=== PATIENT | female | born 1955 | race Caucasian/White ===

== ENCOUNTER → 2017-05-25 | Day surgery (SDC) | payer BC ==
[~2017-05-25] MED LIST: ALENDRONATE SOD70 MG PO; CALTRATE 600 W1 EACH; D3 PO; DONNATAL E16.2 MG/5; ELESTRIN TOP; FENTANYL CITRATE/PF 100MCG/2 ML INJ ONE; FISH OIL 500 M1 EAC1 PO; LEVOCETIRIZINE D5 MG PO; LEVOTHYROXINE125 MCG PO; LIOTHYRONINE SO5 MCG PO; MIDAZOLAM HCL 2 MG/2 ML VIAL ONE; MONTELUKAST SOD10 MG PO; OR PHACO EYE KIT ONE; PREOP PHACO EYE KIT ONE; ROPINIROLE HCL1 MG PO; VITAMIN E1000 UNI1 PO; ZOLPIDEM TARTRAT5 MG PO; [UNRECOGNIZED DRUG - OTHER] PO
== END | disposition home or self-care (01) ==
LOC: OR 11:48
PROVIDERS: ATTEND Ophthalmology
DX: H25.12 Age-related nuclear cataract, left eye (principal); M81.0 Age-related osteoporosis without current pathological fracture; E03.9 Hypothyroidism, unspecified
CPT/HCPCS: 66984; J2250; V2788

== ENCOUNTER 2018-03-10 11:32 | Emergency (ER) | payer BC ==
[~2018-03-10] VITALS: Ht 160 cm; Wt 59.0 kg
[~2018-03-10 11:32] MED LIST changes: -FENTANYL CITRATE/PF 100MCG/2 ML INJ ONE; -MIDAZOLAM HCL 2 MG/2 ML VIAL ONE; -OR PHACO EYE KIT ONE; -PREOP PHACO EYE KIT ONE
[2018-03-10] MEDS ORDERED: TRAMADOL HCL 50 MG TAB PO ONE (12:00)
--- NOTE | 2018-03-10 12:27 | Diagnostic Imaging Report ---
Exam: Left wrist 3 views History: Pain, concern for fracture Comparison: None. Findings: No acute, displaced fracture or dislocation. Appropriate alignment between the distal radius, lunate, and capitate is maintained on the lateral radiograph. There is ulnar positive variance with narrowing of the radiocarpal joint space. No gross soft tissue abnormalities. Impression: No acute displaced fractures. Ulnar positive variance with radiocarpal osteoarthrosis. Signed by: Dr. Rod Gaona M.D. on 03/10/2018 12:23 PM
--- NOTE | 2018-03-10 12:29 | Diagnostic Imaging Report ---
Exam: Left hand 3 views History: Pain, concern for fracture Comparison: Wrist radiographs same day Findings: No acute, displaced fracture or dislocation. Ulnar positive variance is again noted. Refer to wrist radiographs same day. Joint spaces are well-maintained. Soft tissues are unremarkable. Impression: No acute osseous abnormalities of the left hand. Signed by: Dr. Rod Gaona M.D. on 03/10/2018 12:25 PM
== END 2018-03-10 13:39 | disposition home or self-care (01) ==
LOC: ER 11:32
DX: S63.522A Sprain of radiocarpal joint of left wrist, initial encounter (principal); W01.0XXA Fall on same level from slipping, tripping and stumbling without subsequent striking against object, initial encounter; Y92.008 Other place in unspecified non-institutional (private) residence as the place of occurrence of the external cause; E03.9 Hypothyroidism, unspecified; M81.0 Age-related osteoporosis without current pathological fracture
CPT/HCPCS: 99283

== ENCOUNTER → 2019-01-28 | Day surgery (SDC) | payer BC, MEDICARE ==
[2019-01-25 12:14] LABS: BASOPHILS % 0.3 % (0.0-1.0); EOSINOPHILS # (AUTO) 0.1 (0.0-0.4); EOSINOPHILS % 2.1 % (0.0-6.0); HEMATOCRIT 40.4 % (34.2-44.1); HEMOGLOBIN 13.2 g/dL (12.0-16.0); LYMPHOCYTES # (AUTO) 2.1 (1.0-3.2); LYMPHOCYTES % 36.4 % (18.0-39.1); MEAN CORPUSCULAR HEMOGLOBIN 32.4 pg (28-32); MEAN CORPUSCULAR HGB CONC 32.7 g/dL (31-35); MONOCYTES # (AUTO) 0.7 (0.2-0.8); MONOCYTES % 11.6 % (4.4-11.3); NEUTROPHILS # (AUTO) 2.9 (2.1-6.9); NEUTROPHILS % 49.3 % (38.7-80.0); PLATELET COUNT 280 x10e3/uL (140-360); RED BLOOD COUNT 4.08 x10e6/uL (3.6-5.1); RED CELL DISTRIBUTION WIDTH 13.3 % (11.7-14.4)
[~2019-01-28] MED LIST changes: +DONNATAL E16.2 MG/5 PO; +FENTANYL CITRATE/PF 100MCG/2 ML INJ ONE; +HYOSCYAMINE 0.125 MG TAB ONE; +MIDAZOLAM HCL 2 MG/2 ML VIAL ONE; +PROPOFOL IV EMULSION 10 MG/ML 50 ML VIAL ONE
--- OUTSIDE RECORDS SUMMARY | 2019-01-28 08:06 | XMS REPORT ---
Author Author [facility] Address Unknown Phone Unavailable Care Team Providers Care Director Professional Services Name Role Phone Jojo CASTRO Unavailable Unavailable Problems This patient has no known problems. Allergies, Adverse Reactions, Alerts This patient has no known allergies or adverse reactions. Medications This patient has no known medications. Results Test Description Test Time Test Comments Text Results Atomic Results Result Comments SCR MAMM BILATERAL JOEY CAD DIGITAL 2018-12-26 08:47:47 - SCR MAMM BILATERAL JOEY CAD DIGITALBILATERAL DIGITAL SCREENING MAMMOGRAM 3D/2D WITH CAD: 12/23/2018CLINICAL: Asymptomatic. Digital breast tomosynthesis was performed in addition to routine CC and MLO views. Current mammographic images were evaluated by either a [employer] M-Vu or a [employer] CAD (computer aided detection system). Comparison is made to exams dated 12/22/2017 mammogram, 11/02 mammogram - [facility]-, and 02/24/2016 mammogram - [facility]. The tissue of both breasts is heterogeneously dense. This may lower the sensitivity of mammography. There are benign-appearing masses with obscured borders in both breasts, larger in the left breast. There also are benign scattered calcifications in the right breast and benign calcifications in the left breast. Additionally, there alsois a biopsy clip in the right breast. No suspicious new mass, architectural distortion, malignant type calcification, or lymph node abnormality detected. B reast architecture appears generally stable compared to prior exams.IMPRESSION: BENIGNThere is no mammographic evidence of malignancy. Resume annual screening mammography in one year. Bilateral breast masses appear slightly larger on the current exam. Simple and complicated cysts were reported at sonography om 12/22/2017.Steven Adair M.D. rb/:12/26/2018 08:47:47 Lance Crewmember/Mlrs Sergeant: Rayne Yanez , [facility]-FWletter sent: BIRADS 1-2 Normal Mammogram BI-RADS: 2 Benign HAND 3+ VIEWS LEFT 2018-03-10 12:24:00 [place] [id number] [place] [id number] Patient Name: NATHALY MIMS MR #: [id number] : 1955 Age/Sex: 63/F Req #: [id number] Adm Physician: Ordered by: JAEL BRICEÑO BUFFING WHEEL PRESSER Report #: [id number] Location: ER Room/Bed: Procedure: [id number] DX/HAND 3+ VIEWS LEFT Exam Date: 03/10/18 Exam Time: 1205 REPORT STATUS: Signed Exam: Left hand 3 views History: Pain, concern for fracture Comparison: Wrist radiographs same day Findings: No acute, displaced fracture or dislocation. Ulnar positive variance is again noted. Refer to wrist radiographs same day. Joint spaces are well-maintained. Soft tissues are unremarkable. Impression: No acute osseous abnormalities of the left hand. Signed by: Dr. Mane Mcelroy M.D. on 03/10/2018 12:25 PM Dictated By: MANE MCELROY MD 1225 Transcribed By: KRISTI on 03/10/18 1225 COPY TO: JAEL BRICEÑO BUFFING WHEEL PRESSER WRIST COMPLETE LEFT 2018-03-10 12:19:00 [place] [address] Patient Name: NATHALY MIMS MR #: [id number] : 1955 Age/Sex: 63/F Req #: [id number] Adm Physician: Ordered by: JAEL BRICEÑO BUFFING WHEEL PRESSER Report #: [id number] Location: Room/Bed: Procedure: [id number] DX/WRIST COMPLETE LEFT Exam Date: 03/10/18 Exam Time: 120 REPORT STATUS: Signed Exam: Left wrist 3 views History: Pain, conc alisson for fracture Comparison: None. Findings: No acute, displaced fracture or dislocation. Appropriate alignment between the distal radius, lunate, and capitate is maintained on the lateral radiograph. There is ulnar positive variance with narrowing of the radiocarpal joint space. No gross soft tissue abnormalities. Impression: No acute displaced fractures. Ulnar positive variance with radiocarpal osteoarthrosis. Signed by: Dr. Mane Mcelroy M.D. on 03/10/2018 12:23 PM Dictated By: MANE MCELROY MD 1223 Transcribed By: KRISTI on 03/10/18 1223 COPY TO: JAEL BRICEÑO NP
[2019-01-28 12:20] VITALS: BP 121/76
--- NOTE | 2019-01-28 12:44 | Operative Report ---
DATE OF PROCEDURE: 01/28/2019 SURGEON: Janes Dominguez MD PROCEDURE: Colonoscopy with polypectomy. INDICATIONS FOR COLONOSCOPY: Surveillance colonoscopy, history of Oseguera syndrome. MEDICATIONS: The patient was done under MAC, please see anesthesiologist's note. PROCEDURE IN DETAIL: With the patient in left lateral decubitus position, a flexible fiberoptic Olympus colonoscope was inserted into the rectum with ease and advanced all the way to the cecum. One polyp was removed per cold snare polypectomy. An additional cecal polyp was removed per the cold biopsy forceps. The ascending, transverse and descending appeared to be within normal limits. Diverticular disease was noted to involve the sigmoid colon. The scope was then retroflexed into the distal rectum and the area around the dentate line appeared to be within normal limits. The scope was then straightened out, it was subsequently withdrawn. The patient tolerated the procedure well. IMPRESSION: 1. Cecal polyps x2, one cold snared and one cold biopsied. 2. Diverticulosis. PLAN: Follow up histology. Initiate high-fiber, low-fat diet. Initiate high-fiber supplement. The patient might benefit from a followup colonoscopy in 1 to 2 years. Janes Dominguez MD [facility] [place] /[id number] cc: Mike Ospina MD
== END | disposition home or self-care (01) ==
LOC: OR 07:55
PROVIDERS: ATTEND Internal Medicine Gastroenterology
DX: K57.30 Diverticulosis of large intestine without perforation or abscess without bleeding (principal); G25.81 Restless legs syndrome; G47.00 Insomnia, unspecified; E03.9 Hypothyroidism, unspecified; M81.0 Age-related osteoporosis without current pathological fracture; Z80.0 Family history of malignant neoplasm of digestive organs; Z86.010 Personal history of colon polyps; R03.0 Elevated blood-pressure reading, without diagnosis of hypertension; D12.0 Benign neoplasm of cecum; Z91.010 Allergy to peanuts; Z01.810 Encounter for preprocedural cardiovascular examination; Z01.812 Encounter for preprocedural laboratory examination
CPT/HCPCS: 36415; 45380; 45385; 85025; 93005; J2250; J2704; J3010; 45378; 45384

== ENCOUNTER → 2019-02-21 | Day surgery (SDC) | payer MEDICARE, BC ==
[~2019-02-21] MED LIST changes: -HYOSCYAMINE 0.125 MG TAB ONE; +OR PHACO EYE KIT ONE; +PREOP PHACO EYE KIT ONE; -PROPOFOL IV EMULSION 10 MG/ML 50 ML VIAL ONE
[2019-02-21 13:46] VITALS: BP 148/46
== END | disposition home or self-care (01) ==
LOC: OR 10:10
PROVIDERS: ATTEND Ophthalmology
DX: H25.11 Age-related nuclear cataract, right eye (principal); E03.9 Hypothyroidism, unspecified; Z91.010 Allergy to peanuts
CPT/HCPCS: 66984; J2250; J3010; V2632

== ENCOUNTER → 2020-03-05 | Day surgery (SDC) | payer BC, MEDICARE ==
[2020-03-01 12:10] LABS: BASOPHILS % 0.6 % (0.0-1.0); EOSINOPHILS # (AUTO) 0.2 (0.0-0.4); EOSINOPHILS % 2.5 % (0.0-6.0); HEMATOCRIT 38.8 % (34.2-44.1); HEMOGLOBIN 12.5 g/dL (12.0-16.0); LYMPHOCYTES # (AUTO) 2.4 (1.0-3.2); LYMPHOCYTES % 37.5 % (18.0-39.1); MEAN CORPUSCULAR HEMOGLOBIN 30.7 pg (28-32); MEAN CORPUSCULAR HGB CONC 32.2 g/dL (31-35); MEAN CORPUSCULAR VOLUME 95.3 fL (81-99); MONOCYTES # (AUTO) 1.1 (0.2-0.8); NEUTROPHILS # (AUTO) 2.7 (2.1-6.9); NEUTROPHILS % 42.2 % (38.7-80.0); PLATELET COUNT 280 x10e3/uL (140-360); RED BLOOD COUNT 4.07 x10e6/uL (3.6-5.1); RED CELL DISTRIBUTION WIDTH 13.4 % (11.7-14.4)
[~2020-03-05] MED LIST changes: +GLUCAGON FOR INJ 1 MG VIAL ONE; +HYOSCYAMINE 0.125 MG TAB ONE; +LIDOCAINE HCL 2% LOCAL INJ 5 ML SDV VIAL INJ ONE; -OR PHACO EYE KIT ONE; -PREOP PHACO EYE KIT ONE; +PROPOFOL IV EMULSION 10 MG/ML 20 ML VIAL ONE; +SYMAX-SR0.375 MG PO; +XYZAL5 MG PO
[2020-03-05 12:40] VITALS: BP 114/67
--- NOTE | 2020-03-05 12:56 | Operative Report ---
DATE OF PROCEDURE: 03/05/2020 SURGEON: Janes Dominguez MD PROCEDURE: Colonoscopy with polypectomy. INDICATIONS FOR COLONOSCOPY: Personal history of colon polyps, brother and mother with colon cancer. MEDICATIONS: The patient was done under MAC, please see anesthesiologist's note. PROCEDURE IN DETAIL: With the patient in the left lateral decubitus position, the flexible fiberoptic Olympus scope was inserted into the rectum with ease and advanced all the way to the cecum. The mucosa overlying the cecum appeared to be within normal limits. One polyp was cold snared, one polyp was hot biopsied, and site hemoclipped x1 in the ascending colon. The transverse appeared to be within normal limits. One polyp was hot biopsied from the descending colon. Diverticular disease was noted to involve the distal descending and the sigmoid colon. The scope was then retroflexed into the distal rectum and the area around the dentate line appeared to be within normal limits. The scope was then straightened out, it was subsequently withdrawn, and the patient tolerated the procedure well. IMPRESSION: 1. Ascending colon polyps x2, one cold snared, one hot biopsied and site hemoclipped x1. 2. Descending colon polyp, hot biopsied. 3. Diverticulosis. PLAN: Follow up histology. Initiate high-fiber, low-fat diet. Initiate high-fiber supplement. The patient might benefit from a followup colonoscopy in two years. Janes Dominguez MD [facility] [place] /[id number] cc: Mike Ospina MD
== END | disposition home or self-care (01) ==
LOC: OR 10:27
PROVIDERS: ATTEND Internal Medicine Gastroenterology
DX: Z12.11 Encounter for screening for malignant neoplasm of colon (principal); D12.2 Benign neoplasm of ascending colon; K57.30 Diverticulosis of large intestine without perforation or abscess without bleeding; E03.9 Hypothyroidism, unspecified; Z91.010 Allergy to peanuts; Z01.810 Encounter for preprocedural cardiovascular examination; Z01.812 Encounter for preprocedural laboratory examination; Z20.828 Contact with and (suspected) exposure to other viral communicable diseases; Z80.0 Family history of malignant neoplasm of digestive organs
CPT/HCPCS: 36415 ×2; 45384; 45385; 82948; 85025; 88305; 93005; J1610; J2001; J2250; J2704; J3010; U0002

== ENCOUNTER 2020-03-15 14:10 | Inpatient (IN) | payer MEDICARE ==
[~2020-03-15] VITALS: Ht 162.6 cm; Wt 59.0 kg
[~2020-03-15 14:10] MED LIST changes: -FENTANYL CITRATE/PF 100MCG/2 ML INJ ONE; -GLUCAGON FOR INJ 1 MG VIAL ONE; -HYOSCYAMINE 0.125 MG TAB ONE; -LIDOCAINE HCL 2% LOCAL INJ 5 ML SDV VIAL INJ ONE; -MIDAZOLAM HCL 2 MG/2 ML VIAL ONE; -PROPOFOL IV EMULSION 10 MG/ML 20 ML VIAL ONE
[2020-03-15] MEDS ORDERED: ONDANSETRON HCL INJ 2MG/ML 2ML 2 MG/ML VIAL IV STA ×2 (14:32→16:14)
[2020-03-15] MEDS ORDERED: MORPHINE SULFATE INJ 4 MG/ML INJ 1ML IV ONE (14:45)
[2020-03-15 15:27] LABS: BASOPHILS % 0.3 % (0.0-1.0); EOSINOPHILS # (AUTO) 0.1 (0.0-0.4); EOSINOPHILS % 0.6 % (0.0-6.0); HEMATOCRIT 36.4 % (34.2-44.1); HEMOGLOBIN 12.1 g/dL (12.0-16.0); LYMPHOCYTES # (AUTO) 1.5 (1.0-3.2); LYMPHOCYTES % 16.9 % (18.0-39.1); MEAN CORPUSCULAR HEMOGLOBIN 30.6 pg (28-32); MEAN CORPUSCULAR HGB CONC 33.2 g/dL (31-35); MEAN CORPUSCULAR VOLUME 92.2 fL (81-99); MONOCYTES # (AUTO) 0.8 (0.2-0.8); MONOCYTES % 8.5 % (4.4-11.3); NEUTROPHILS # (AUTO) 6.7 (2.1-6.9); NEUTROPHILS % 73.1 % (38.7-80.0); PLATELET COUNT 303 x10e3/uL (140-360); RED BLOOD COUNT 3.95 x10e6/uL (3.6-5.1)
[2020-03-15 15:47] LABS: ALANINE AMINOTRANSFERASE 19 IU/L (0-55); ALBUMIN 3.8 g/dL (3.5-5.0); ALBUMIN/GLOBULIN RATIO 1.2 (0.8-2.0); ALKALINE PHOSPHATASE 84 IU/L (40-150); ANION GAP 12.9 mmol/L (8-16); BLOOD UREA NITROGEN 20 mg/dL (7-26); BUN/CREATININE RATIO 28 (6-25); CALCIUM 9.2 mg/dL (8.4-10.2); CARBON DIOXIDE 23 mmol/L (22-29); CHLORIDE 104 mmol/L (98-107); CREATININE, SERUM 0.72 mg/dL (0.57-1.11); EST GLOMERULAR FILTRATION RATE > 60 ML/MIN (60-); GLUCOSE 107 mg/dL (74-118); POTASSIUM 3.9 mmol/L (3.5-5.1); SODIUM 136 mmol/L (136-145)
[2020-03-15] MEDS ORDERED: MORPHINE SULFATE 2 MG/ML SYR 1ML IV STA (16:14)
[2020-03-15 18:03] VITALS: BP 112/70
[2020-03-15 18:30] VITALS: BP 112/70
[2020-03-15 18:39] VITALS: BP 112/70
[2020-03-15 20:05] VITALS: BP 125/58
[2020-03-16] VITALS (7 sets, daily range): BP systolic 125–146; BP diastolic 74–82
[2020-03-16] MEDS: ONDANSETRON HCL INJ 2MG/ML 2ML 2 MG/ML VIAL IV PRN ×4 (01:22→21:00)
[2020-03-16] MEDS: MORPHINE SULFATE INJ 4 MG/ML INJ 1ML IV PRN ×5 (01:22→21:00)
[2020-03-16] MEDS: LEVOTHYROXINE SODIUM 125 MCG TAB PO SCH (05:00)
[2020-03-16] MEDS: LIOTHYRONINE SODIUM 5 MCG TAB PO SCH (10:22)
[2020-03-16] MEDS ORDERED: SODIUM CHLORIDE 0.45% 1,000 ML ONE (11:26)
[2020-03-16] MEDS: MONTELUKAST SODIUM 10 MG TAB PO SCH (21:00)
[2020-03-16] MEDS: ZOLPIDEM TARTRATE 5 MG TAB PO SCH (21:00)
[2020-03-17] VITALS (8 sets, daily range): BP systolic 124–146; BP diastolic 72–81
[2020-03-17] MEDS: MORPHINE SULFATE INJ 4 MG/ML INJ 1ML IV PRN ×4 (05:00→18:15)
[2020-03-17] MEDS: ONDANSETRON HCL INJ 2MG/ML 2ML 2 MG/ML VIAL IV PRN ×4 (05:00→18:15)
[2020-03-17] MEDS: LEVOTHYROXINE SODIUM 125 MCG TAB PO SCH (05:14)
[2020-03-17] MEDS: LIOTHYRONINE SODIUM 5 MCG TAB PO SCH (08:00)
[2020-03-17] MEDS: ZOLPIDEM TARTRATE 5 MG TAB PO SCH (21:46)
[2020-03-17] MEDS: MONTELUKAST SODIUM 10 MG TAB PO SCH (21:47)
[2020-03-18] VITALS (7 sets, daily range): BP systolic 126–153; BP diastolic 63–77
[2020-03-18] MEDS: ONDANSETRON HCL INJ 2MG/ML 2ML 2 MG/ML VIAL IV PRN ×2 (02:30→10:02)
[2020-03-18] MEDS: MORPHINE SULFATE INJ 4 MG/ML INJ 1ML IV PRN ×2 (02:30→10:02)
[2020-03-18] MEDS: LEVOTHYROXINE SODIUM 125 MCG TAB PO SCH (05:23)
[2020-03-18] MEDS ORDERED: CEFAZOLIN SOD 2 GM/D5W 50ML 50 ML IV ONE (07:00)
[2020-03-18] MEDS ORDERED: ROPIVACAINE 246.25 MG, EPINEPHRINE HCL 1:1000 1ML 0.5 MG, CLONIDINE HCL 0.08 MG, KETORO... INJ ONE ×5 (08:00)
[2020-03-18] MEDS: LIOTHYRONINE SODIUM 5 MCG TAB PO SCH (09:00)
[2020-03-18] MEDS ORDERED: SODIUM CHLORIDE 0.9% 250ML 250 ML ONE (09:22)
[2020-03-18] MEDS ORDERED: CEFAZOLIN SOD 1 GM VIAL IV ONE (09:30)
[2020-03-18] MEDS ORDERED: CELECOXIB 200 MG CAP ONE (10:16)
[2020-03-18] MEDS ORDERED: DEXAMETHASONE SOD PHOS 10 MG/1 ML VIAL ONE (10:16)
[2020-03-18] MEDS ORDERED: GABAPENTIN 300 MG CAP ONE (10:17)
[2020-03-18] MEDS ORDERED: BUPIVACAINE 7.5MG/ML /DEXTROSE 82.5MG/ML 2 ML AMP INJ ONE (11:17)
[2020-03-18] MEDS ORDERED: TRANEXAMIC ACID 1,000 MG/10 ML ML ONE (11:28)
[2020-03-18] MEDS ORDERED: SODIUM CHLORIDE 0.9% 500ML 500 ML ONE (11:56)
[2020-03-18] MEDS ORDERED: VANCOMYCIN HCL 1,000 MG ONE (11:56)
[2020-03-18] MEDS ORDERED: LIDOCAINE HCL 2% LOCAL INJ 5 ML SDV VIAL INJ ONE (12:44)
[2020-03-18] MEDS ORDERED: PROPOFOL IV EMULSION 10 MG/ML 20 ML VIAL ONE (12:44)
[2020-03-18] MEDS ORDERED: ONDANSETRON HCL INJ 2MG/ML 2ML 2 MG/ML VIAL ONE (12:44)
[2020-03-18] MEDS ORDERED: CEFAZOLIN SOD 1 GM VIAL ONE (12:44)
[2020-03-18] MEDS ORDERED: KETOROLAC TROMETHAMINE 30 MG/ML VIAL ONE (12:44)
[2020-03-18] MEDS ORDERED: SEVOFLURANE INHAL SOLN 250 ML PEN BTL ONE (12:44)
[2020-03-18] MEDS ORDERED: HYDROCODONE/APAP 7.5MG-325MG 1 EA TAB PO PRN (13:15)
[2020-03-18] MEDS ORDERED: KETOROLAC TROMETHAMINE 30 MG/ML VIAL IV PRN (13:15)
[2020-03-18] MEDS ORDERED: ONDANSETRON HCL INJ 2MG/ML 2ML 2 MG/ML VIAL IV PRN (13:15)
[2020-03-18] MEDS ORDERED: ACETAMINOPHEN 650 MG SUPP PR PRN (13:15)
[2020-03-18] MEDS ORDERED: DIPHENHYDRAMINE HCL INJ 50 MG/ML VIAL IV PRN (13:15)
[2020-03-18] MEDS: SODIUM CHLORIDE 0.9% 1000ML 1,000 ML IV SCH ×2 (13:15→21:12)
[2020-03-18] MEDS ORDERED: DOCUSATE SODIUM 100 MG CAP PO PRN (13:15)
[2020-03-18] MEDS ORDERED: ZOLPIDEM TARTRATE 5 MG TAB PO PRN (13:15)
[2020-03-18] MEDS ORDERED: MUPIROCIN 2% OINT 22 GM TUBE ONE (13:18)
[2020-03-18] MEDS: CEFAZOLIN SOD 1 GM/NS 50ML 50 ML IV SCH ×2 (14:00→22:26)
[2020-03-18] MEDS ORDERED: CELECOXIB 100 MG CAP PO SCH (17:00)
[2020-03-18] MEDS: ZOLPIDEM TARTRATE 5 MG TAB PO SCH (21:00)
[2020-03-18] MEDS: ASPIRIN 325 MG TAB PO SCH (21:15)
[2020-03-18] MEDS: MONTELUKAST SODIUM 10 MG TAB PO SCH (21:15)
[2020-03-18] MEDS: CELECOXIB 200 MG CAP PO SCH (21:15)
[2020-03-18] MEDS: HYDROCODONE/APAP 5MG-325MG TAB PO PRN (22:47)
[2020-03-19] VITALS (8 sets, daily range): BP systolic 108–138; BP diastolic 55–89
[2020-03-19] MEDS: LEVOTHYROXINE SODIUM 125 MCG TAB PO SCH (06:11)
[2020-03-19] MEDS: CEFAZOLIN SOD 1 GM/NS 50ML 50 ML IV SCH (06:11)
[2020-03-19 06:20] LABS: HEMATOCRIT 34.1 % (34.2-44.1); HEMOGLOBIN 11.2 g/dL (12.0-16.0)
[2020-03-19] MEDS: CELECOXIB 200 MG CAP PO SCH ×2 (09:29→18:06)
[2020-03-19] MEDS: ASPIRIN 325 MG TAB PO SCH ×2 (09:30→18:06)
[2020-03-19] MEDS: LIOTHYRONINE SODIUM 5 MCG TAB PO SCH (09:30)
[2020-03-19] MEDS: HYDROCODONE/APAP 5MG-325MG TAB PO PRN (09:31)
[2020-03-19] MEDS ORDERED: ACETAMINOPHEN 1000 MG/100 ML IV PRN (13:15)
[2020-03-20] MEDS ORDERED: BALSAM PERU/CASTOR OIL 60 GM OINT...G. TP SCH (09:00)
== END 2020-03-19 21:09 | disposition home or self-care (01) | DRG 522 ==
LOC: ER 14:30 → ERHOLD 16:25 → MED/SURG3 17:41 → MED/SURG 03-18 19:20
PROVIDERS: ADMIT Internal Medicine; ATTEND Internal Medicine
PROC: 0SR904A Replacement of Right Hip Joint with Ceramic on Polyethylene Synthetic Substitute, Uncemented, Open Approach (ICD-10-PCS; principal; 2020-03-18 11:30)
DX: M84.459A Pathological fracture, hip, unspecified, initial encounter for fracture (principal); Y93.9 Activity, unspecified; Y92.009 Unspecified place in unspecified non-institutional (private) residence as the place of occurrence of the external cause; M81.0 Age-related osteoporosis without current pathological fracture; W01.0XXA Fall on same level from slipping, tripping and stumbling without subsequent striking against object, initial encounter; M16.12 Unilateral primary osteoarthritis, left hip; I10 Essential (primary) hypertension; E03.9 Hypothyroidism, unspecified; D64.9 Anemia, unspecified
CPT/HCPCS: 36415; 71045; 72170; 80053; 85014; 85018; 85025; 86850; 86900; 93005; 97139; 99251; 99284; J0171; J0690; J1100; J1885; J2001; J2270; J2405; J2795; J3370; J7030; J7040; J7050; U0002

== ENCOUNTER 2021-10-21 19:52 | Inpatient (IN) | payer MEDICARE, OTHER ==
[~2021-10-21] VITALS: Ht 160 cm; Wt 59.0 kg
[2021-10-21 01:25] VITALS: BP 135/74
[~2021-10-21 19:52] MED LIST changes: +AMBIEN5 MG PO; +CYMBALTA30 MG PO; +PHENTERMINE H37.5 MG PO
[2021-10-21] MEDS ORDERED: KETOROLAC TROMETHAMINE 30 MG/ML VIAL IV STA (21:24)
[2021-10-21] MEDS ORDERED: ONDANSETRON HCL INJ 2MG/ML 2ML 2 MG/ML VIAL IV STA (21:24)
[2021-10-21] MEDS ORDERED: SODIUM CHLORIDE 0.9% 1000ML 1,000 ML IV ONE (21:30)
[2021-10-21 21:51] LABS: BASOPHILS % 0.4 % (0.0-1.0); EOSINOPHILS % 0.4 % (0.0-6.0); HEMATOCRIT 42.7 % (34.2-44.1); HEMOGLOBIN 14.4 g/dL (12.0-16.0); LYMPHOCYTES # (AUTO) 1.8 (1.0-3.2); LYMPHOCYTES % 18.8 % (18.0-39.1); MEAN CORPUSCULAR HEMOGLOBIN 29.8 pg (28-32); MEAN CORPUSCULAR HGB CONC 33.7 g/dL (31-35); MEAN CORPUSCULAR VOLUME 88.2 fL (81-99); MONOCYTES # (AUTO) 0.8 (0.2-0.8); MONOCYTES % 8.9 % (4.4-11.3); NEUTROPHILS # (AUTO) 6.7 (2.1-6.9); NEUTROPHILS % 71.2 % (38.7-80.0); PLATELET COUNT 301 x10e3/uL (140-360); RED BLOOD COUNT 4.84 x10e6/uL (3.6-5.1); RED CELL DISTRIBUTION WIDTH 13.2 % (11.7-14.4)
[2021-10-21 21:54] LABS: ALBUMIN 3.9 g/dL (3.5-5.0); ALBUMIN/GLOBULIN RATIO 1.1 (0.8-2.0); ANION GAP 16.4 mmol/L (8-16); CALCIUM 9.4 mg/dL (8.4-10.2); CREATININE, SERUM 0.79 mg/dL (0.57-1.11); POTASSIUM 3.4 mmol/L (3.5-5.1)
[2021-10-21] MEDS ORDERED: IOPAMIDOL 370 MG/ML 100 ML INFUS..BTL INJ ONE (22:30)
[2021-10-22] VITALS (9 sets, daily range): BP systolic 118–156; BP diastolic 61–85
[2021-10-22] MEDS ORDERED: ONDANSETRON HCL INJ 2MG/ML 2ML 2 MG/ML VIAL IV PRN (00:15)
[2021-10-22] MEDS ORDERED: Morphine 4mg INJECTION 4 MG/ML INJ IV PRN (00:15)
[2021-10-22] MEDS: SODIUM CHLORIDE 0.9% 1000ML 1,000 ML IV SCH ×4 (01:45→22:41)
[2021-10-22] MEDS ORDERED: ACETAMINOPHEN-1 EAC4 PO (07:34)
[2021-10-22] MEDS ORDERED: LIDOCAINE HCL 2% LOCAL INJ 5 ML SDV VIAL INJ ONE (11:54)
[2021-10-22] MEDS ORDERED: ONDANSETRON HCL INJ 2MG/ML 2ML 2 MG/ML VIAL ONE (11:54)
[2021-10-22] MEDS ORDERED: DEXAMETHASONE SOD PHOS INJ 4 MG/ML SDV ONE (11:54)
[2021-10-22] MEDS ORDERED: SEVOFLURANE INHAL SOLN 250 ML PEN BTL ONE (11:54)
[2021-10-22] MEDS ORDERED: PROPOFOL IV EMULSION 10 MG/ML 20 ML VIAL ONE (11:54)
[2021-10-22] MEDS ORDERED: POVIDONE IODINE 0.05% 0.05 % ML PO ONE (11:54)
[2021-10-22] MEDS ORDERED: MIDAZOLAM HCL 2 MG/2 ML VIAL ONE (12:36)
[2021-10-22] MEDS ORDERED: FENTANYL CITRATE/PF 100MCG/2 ML INJ ONE (12:36)
[2021-10-22] MEDS ORDERED: ACETAMINOPHEN/CODEINE 300MG - 30MG TAB PO PRN (14:00)
[2021-10-22] MEDS ORDERED: PHENAZOPYRIDINE HCL 100 MG TAB PO PRN (14:00)
[2021-10-22] MEDS ORDERED: B&O 60MG R/S 60 MG SUPP PR PRN (14:00)
[2021-10-22] MEDS ORDERED: IOPAMIDOL 610MG/1ML 300 MG/ML VIAL IV ONE (14:07)
[2021-10-22] MEDS ORDERED: B&O 60MG R/S 60 MG SUPP PR ONE (14:08)
[2021-10-22 15:07] LABS: CLARITY,URINE SL CLOUDY (CLEAR); COLOR,URINE YELLOW (YELLOW)
[2021-10-22 15:08] LABS: KETONES,URINE 1+ (NEGATIVE); LEUKOCYTE ESTERASE ,URINE TRACE (NEGATIVE); NITRITE,URINE NEGATIVE (NEGATIVE); PROTEIN,URINE DIPSTICK 1+ (NEGATIVE); URINE UROBILINOGEN 0.2 mg/dL (0.2 - 1)
[2021-10-22 15:32] LABS: BACTERIA,URINE MANY /HPF; RBC,URINE 21-50 /HPF (0-5); WBC,URINE (MAN) >50 /HPF (0-5)
[2021-10-22 15:33] LABS: EPITHELIAL CELLS,URINE MODERATE /LPF
[2021-10-22 15:34] LABS: MUCUS,URINE FEW (RARE); TRANSITIONAL EPI CELLS,URINE FEW
[2021-10-23] VITALS: BP 129/87
[2021-10-23 04:00] VITALS: BP 142/79
[2021-10-23 06:42] LABS: BASOPHILS % 0.4 % (0.0-1.0); EOSINOPHILS % 0.3 % (0.0-6.0); HEMATOCRIT 40.2 % (34.2-44.1); LYMPHOCYTES # (AUTO) 1.1 (1.0-3.2); LYMPHOCYTES % 15.1 % (18.0-39.1); MEAN CORPUSCULAR HEMOGLOBIN 29.7 pg (28-32); MEAN CORPUSCULAR HGB CONC 32.3 g/dL (31-35); MONOCYTES # (AUTO) 0.6 (0.2-0.8); NEUTROPHILS # (AUTO) 5.3 (2.1-6.9); NEUTROPHILS % 74.8 % (38.7-80.0); PLATELET COUNT 269 x10e3/uL (140-360); RED BLOOD COUNT 4.37 x10e6/uL (3.6-5.1); RED CELL DISTRIBUTION WIDTH 13.5 % (11.7-14.4)
[2021-10-23 07:05] LABS: ALBUMIN 2.9 g/dL (3.5-5.0); ALBUMIN/GLOBULIN RATIO 0.8 (0.8-2.0); ANION GAP 11.6 mmol/L (8-16); CALCIUM 7.8 mg/dL (8.4-10.2); CREATININE, SERUM 0.74 mg/dL (0.57-1.11); POTASSIUM 3.6 mmol/L (3.5-5.1)
[2021-10-23 08:00] VITALS: BP 142/79
[2021-10-23] MEDS: SODIUM CHLORIDE 0.9% 1000ML 1,000 ML IV SCH (08:15)
[2021-10-23 08:29] VITALS: BP 160/82
[2021-10-23 12:23] VITALS: BP 150/51
[2021-10-23] MEDS ORDERED: KETOROLAC TROME10 MG PO ×2 (13:35→13:36)
[2021-10-23] MEDS ORDERED: DITROPAN XL5 MG PO (13:39)
== END 2021-10-23 15:19 | disposition home or self-care (01) | DRG 661 ==
LOC: ER 20:05 → ERHOLD 10-22 00:14 → MED/SURG2 10-22 01:25
PROVIDERS: ADMIT Internal Medicine; ATTEND Internal Medicine
PROC: 0T768DZ Dilation of Right Ureter with Intraluminal Device, Via Natural or Artificial Opening Endoscopic (ICD-10-PCS; 2021-10-22)
PROC: BT141ZZ Fluoroscopy of Kidneys, Ureters and Bladder using Low Osmolar Contrast (ICD-10-PCS; 2021-10-22)
PROC: 0T778ZZ Dilation of Left Ureter, Via Natural or Artificial Opening Endoscopic (ICD-10-PCS; principal; 2021-10-22 13:41)
DX: N13.6 Pyonephrosis (principal); I10 Essential (primary) hypertension; Z20.822 Contact with and (suspected) exposure to COVID-19; N81.10 Cystocele, unspecified; N23 Unspecified renal colic; N95.2 Postmenopausal atrophic vaginitis; N81.6 Rectocele; Z90.710 Acquired absence of both cervix and uterus; Z90.79 Acquired absence of other genital organ(s); Z96.643 Presence of artificial hip joint, bilateral; M16.0 Bilateral primary osteoarthritis of hip; M81.0 Age-related osteoporosis without current pathological fracture; E03.9 Hypothyroidism, unspecified; N39.41 Urge incontinence; E87.6 Hypokalemia
CPT/HCPCS: 36415; 74018; 74177; 74420; 80053; 81001; 83605; 83970; 84550; 85025; 87086; 93005; 99284; C1758; C1769; C2617; J0696; J1100; J1885; J2001; J2250; J2405; J3010; J7030; Q9967

== ENCOUNTER → 2022-01-22 | Day surgery (SDC) | payer MEDICARE, OTHER ==
[2022-01-20 15:31] LABS: BASOPHILS % 0.5 % (0.0-1.0); EOSINOPHILS # (AUTO) 0.2 (0.0-0.4); EOSINOPHILS % 3.5 % (0.0-6.0); HEMATOCRIT 38.4 % (34.2-44.1); HEMOGLOBIN 12.5 g/dL (12.0-16.0); LYMPHOCYTES # (AUTO) 1.7 (1.0-3.2); LYMPHOCYTES % 26.1 % (18.0-39.1); MEAN CORPUSCULAR HEMOGLOBIN 29.7 pg (28-32); MEAN CORPUSCULAR HGB CONC 32.6 g/dL (31-35); MEAN CORPUSCULAR VOLUME 91.2 fL (81-99); MONOCYTES # (AUTO) 0.6 (0.2-0.8); MONOCYTES % 8.6 % (4.4-11.3); NEUTROPHILS # (AUTO) 4.1 (2.1-6.9); PLATELET COUNT 259 x10e3/uL (140-360); RED BLOOD COUNT 4.21 x10e6/uL (3.6-5.1)
[2022-01-20 15:55] LABS: ANION GAP 15.6 mmol/L (8-16); CALCIUM 9.1 mg/dL (8.4-10.2); CREATININE, SERUM 0.75 mg/dL (0.57-1.11); POTASSIUM 3.6 mmol/L (3.5-5.1)
[~2022-01-22] MED LIST changes: +ACETAMINOPHEN-1 EAC4 PO; +CEFTRIAXONE 1 GM VIAL ONE; +DEXAMETHASONE SOD PHOS INJ 4 MG/ML SDV IV ONE; +DITROPAN XL5 MG PO; +FENTANYL CITRATE/PF 100MCG/2 ML INJ ONE; +KETOROLAC TROME10 MG PO; +LIDOCAINE HCL 2% LOCAL INJ 5 ML SDV VIAL INJ ONE; +MIDAZOLAM HCL 2 MG/2 ML VIAL ONE; +ONDANSETRON HCL INJ 2MG/ML 2ML 2 MG/ML VIAL IV ONE; +PHENTERMINE H37.5 M1 PO; +PHENYLEPHRINE HCL 1% 10 MG/ML VIAL IV ONE; +POVIDONE IODINE 0.05% 0.05 % ML PO ONE; +PROPOFOL IV EMULSION 10 MG/ML 20 ML VIAL IV ONE; +SEVOFLURANE INHAL SOLN 250 ML PEN BTL INH ONE; +SODIUM CHLORIDE 0.9% 100 ML ONE; +SYMAX-SR0.375 MG; +SYNTHROID125 MCG PO
[2022-01-22 09:05] VITALS: BP 134/76
== END | disposition home or self-care (01) ==
LOC: OR 06:38
PROVIDERS: ATTEND Urology
DX: N20.1 Calculus of ureter (principal); Z96.0 Presence of urogenital implants; N20.0 Calculus of kidney; E03.9 Hypothyroidism, unspecified; K21.9 Gastro-esophageal reflux disease without esophagitis; Z01.812 Encounter for preprocedural laboratory examination; Z01.818 Encounter for other preprocedural examination; Z79.899 Other long term (current) drug therapy
CPT/HCPCS: 36415; 50590; 71046; 74018; 80048; 84550; 85025; J0696; J1100; J2001; J2250; J2370; J2405; J2704; J3010; J7050

== ENCOUNTER → 2022-07-23 | Day surgery (SDC) | payer MEDICARE, OTHER ==
[2022-07-21 15:55] LABS: BASOPHILS % 0.4 % (0.0-1.0); EOSINOPHILS # (AUTO) 0.1 (0.0-0.4); EOSINOPHILS % 1.5 % (0.0-6.0); HEMATOCRIT 40.3 % (34.2-44.1); HEMOGLOBIN 13.2 g/dL (12.0-16.0); LYMPHOCYTES # (AUTO) 1.4 (1.0-3.2); MEAN CORPUSCULAR HEMOGLOBIN 31.2 pg (28-32); MEAN CORPUSCULAR HGB CONC 32.8 g/dL (31-35); MEAN CORPUSCULAR VOLUME 95.3 fL (81-99); MONOCYTES # (AUTO) 0.7 (0.2-0.8); MONOCYTES % 9.8 % (4.4-11.3); NEUTROPHILS # (AUTO) 5.1 (2.1-6.9); PLATELET COUNT 145 x10e3/uL (140-360); RED BLOOD COUNT 4.23 x10e6/uL (3.6-5.1); RED CELL DISTRIBUTION WIDTH 14.1 % (11.7-14.4)
[~2022-07-23] MED LIST changes: -CEFTRIAXONE 1 GM VIAL ONE; +EPHEDRINE SULFATE INJ 50 MG/ML VIAL IV ONE; +ESTRADIOL TOP; -FENTANYL CITRATE/PF 100MCG/2 ML INJ ONE; +GABAPENTIN300 MG PO; +HYOSCYAMINE SULFATE 0.5 MG/ML INJ IV ONE; +LACTATED RINGER'S 1,000 ML ONE; +METOCLOPRAMIDE HCL 10 MG/2ML VIAL IV ONE; -MIDAZOLAM HCL 2 MG/2 ML VIAL ONE; +NEOSTIGMINE 1 MG/ML 10ML VIAL IV ONE; -PHENYLEPHRINE HCL 1% 10 MG/ML VIAL IV ONE; +ROCURONIUM BROMIDE 10 MG/ML 5ML VIAL IV ONE; -SODIUM CHLORIDE 0.9% 100 ML ONE
[2022-07-23 13:05] VITALS: BP 116/68
== END | disposition home or self-care (01) ==
LOC: OR 09:13
PROVIDERS: ATTEND Internal Medicine Gastroenterology
DX: Z12.11 Encounter for screening for malignant neoplasm of colon (principal); D12.2 Benign neoplasm of ascending colon; D12.5 Benign neoplasm of sigmoid colon; K57.30 Diverticulosis of large intestine without perforation or abscess without bleeding; K64.8 Other hemorrhoids; Z71.3 Dietary counseling and surveillance; G47.00 Insomnia, unspecified; G25.81 Restless legs syndrome; M81.0 Age-related osteoporosis without current pathological fracture; E03.9 Hypothyroidism, unspecified; R03.0 Elevated blood-pressure reading, without diagnosis of hypertension; Z71.89 Other specified counseling; Z01.810 Encounter for preprocedural cardiovascular examination; Z01.812 Encounter for preprocedural laboratory examination; Z79.899 Other long term (current) drug therapy; Z80.0 Family history of malignant neoplasm of digestive organs
CPT/HCPCS: 36415; 45380; 45385; 85025; 88305; 93005; J1100; J1980; J2001; J2405; J2704; J2710; J2765; J7121; 45378; 45384